=== PATIENT | female | born 1955 | race Two or more races ===

== ENCOUNTER 2025-01-03 18:05 | Emergency (ER) | payer OTHER ==
[~2025-01-03] VITALS: Ht 157.5 cm; Wt 48.3 kg
--- NOTE | 2025-01-03 18:56 | ED.PDOC ---
History of Present Illness HPI Comments 69 y/o F with a history of hypertension, dyslipidemia, benign tremor, osteoporosis and Hodgkin's lymphoma in remission referred by urgent care for evaluation of jaundice for the last 3 weeks. Patient notes yellowing of her skin and eyes, however denies any abdominal pain, nausea, vomiting, fever, diarrhea or other symptoms. Patient was seen at urgent care where ultrasound of the abdomen was performed showing biliary dilatation, gallstones and sludge. 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 Family History Family History: Unknown Social History Smoker: Cigarettes Alcohol: Heavy Drugs: Denies Drug Use Lives In: Home All Other Systems: Reviewed and Negative (Comprehensive systems review obtained and negative except for what is stated in the HPI.) Physical Exam General Appearance: No Apparent Distress HEENT: Scleral Icterus (L), Other (Moist mucous membranes) Neck: Full Range of Motion, Normal Inspection Respiratory: Lungs Clear, No Accessory Muscle Use, No Respiratory Distress, Normal Breath Sounds Cardiovascular: No Edema, No JVD, Regular Rate/Rhythm Breast Exam: Deferred Gastrointestinal: Non Tender, Soft Genitalia: Deferred Pelvic: Deferred Rectal: Deferred Extremities: Normal inspection, Normal range of motion, Non-tender, No pedal edema Neurologic: Alert (Oriented x4), Normal Affect, Normal Mood, Other (Ambulatory) Cerebellar Function: NOT DONE Reflexes: NOT DONE Skin: Dry, Jaundice, Warm Lymphatic: NOT DONE Was a procedure done? Was a procedure done?: No Differential Dx Considerations may include: biliary obstruction, cholelithiasis/choledocholithiasis, liver failure, hepatitis, cholangitis, among others X-Ray, Labs, Meds, VS Vital Signs Date Time Temp Pulse Resp B/P (MAP) Pulse Ox O2 Delivery O2 Flow Rate FiO2 01/03/25 20:22 99.1 88 20 159/87 (111) 99 99.1 01/03/25 18:31 98.3 95 19 149/89 (109) 98 98.3 Lab Test 01/03/25 21:18 01/03/25 18:34 Range/Units Urine Color Pending Urine Clarity Pending Urine pH Pending Urine Specific [place] Pending Urine Protein Pending Urine Ketones Pending Urine Blood Pending Urine Nitrite Pending Urine Bilirubin Pending Urine Urobilinogen Pending Urine Leukocyte Esterase Pending Urine RBC 0 - 4 /hpf Urine Microscopic WBC Pending Urine Squamous Epithelial Cells <5 /hpf Urine Bacteria None Seen /hpf Urine Glucose Pending White Blood Count 9.2 4.4-10.8 10^3/uL Red Blood Count 3.29 L 4.0-5.20 10^6/uL Hemoglobin 11.6 L 12.2-16.2 g/dL Hematocrit 33.1 L 36.0-46.0 % Mean Corpuscular Volume 100.6 H 80.0-100.0 fL Mean Corpuscular Hemoglobin 35.2 H 28.0-32.0 pg Mean Corpuscular Hemoglobin Concent 35.0 32.0-36.0 g/dL Red Cell Distribution Width 15.1 H 11.8-14.3 % Platelet Count 320 140-450 10^3/uL Mean Platelet Volume 7.9 6.9-10.8 fL Neutrophils (%) (Auto) 37.0-80.0 % Lymphocytes (%) (Auto) 10.0-50.0 % Monocytes (%) (Auto) 0.0-12.0 % Basophils (%) (Auto) 0.0-2.0 % Neutrophils # (Auto) 1.6-8.6 10 ^3/uL Lymphocytes # (Auto) 0.4-5.4 10 ^3/uL Monocytes # (Auto) 0-1.3 10 ^3/uL Differential Total Cells Counted 100.0 100 Neutrophils % (Manual) 84 H 37.0-80.0 Band Neutrophils % (Manual) 0 Lymphocytes % (Manual) 10 10.0-50.0 Monocytes % (Manual) 5 0-12 Eosinophils % (Manual) 1 0-7 Basophils % (Manual) 0 0.0-2.0 Metamyelocytes % (manual) 0 Myelocytes % (Manual) 0 Promyelocytes % (Manual) 0 Blast Cells % (Manual) 0 Reactive Lymphocytes 0 Platelet Estimate Adequate Anisocytosis (manual) Slight Macrocytosis Slight Target Cells Few Stomatocytes Moderate Sodium Level 134 L 136-145 mmol/L Potassium Level 3.9 3.5-5.1 mmol/L Chloride Level 104 98-107 mmol/L Carbon Dioxide Level 20 20-31 mmol/L Anion Gap 10 5-15 Blood Urea Nitrogen 12 9-23 mg/dL Creatinine 0.67 0.550-1.02 mg/dL Glomerular Filtration Rate Calc 96 >90 mL/min BUN/Creatinine Ratio 17.9 10.0-20.0 Serum Glucose 112 H 74-106 mg/dL Calcium Level 9.8 8.7-10.4 mg/dL Total Bilirubin 22.3 H 0.2-1.0 mg/dL Aspartate Amino Transferase (AST) 120 H 13-40 U/L Alanine Aminotransferase (ALT) 140 H 7-40 U/L Alkaline Phosphatase 1181 H 46-116 U/L Total Protein 7.1 5.7-8.2 g/dL Albumin 4.4 3.2-4.8 g/dL Lipase 153 H 12-53 U/L [place] [address] Ph: [phone] DIAGNOSTIC IMAGING Diagnostic Imaging Report : [id number] Signed PATIENT: PORSCHE DALAL ACCT: [id number] UNIT: [id number] : 1955 LOC: ER ROOM / BED: / AGE / SEX: 69 / F ADM STATUS: REG ER SERVICE 183 ORDERING PHYSICIAN: RANDOLPH ZUNIGA MD PROCEDURE(s): ABDL - ABDOMEN LIMITED REASON: jaundice, eval for biliary obstruction ORDER NUMBER(s): [id number], ACCESSION NUMBER(s): [id number] INDICATION: jaundice, eval for biliary obstruction TECHNIQUE: Multiple real-time sonographic images of the abdomen were obtained. COMPARISON: None FINDINGS: The liver is homogenous in echogenicity. The liver measures 15.7 cm. No intrahepatic biliary ductal dilatation is noted. The gallbladder wall measures 0.26 cm and is unremarkable. There is mobile gallstone with sludge.. The common duct measures 1.72 cm and is a large. No pericholecystic fluid is noted. The right kidney measures 10.1 cm. No hydronephrosis. The pancreas is not well visualized due to obscuration from bowel gas. The visualized portions of the IVC and aorta are grossly unremarkable. IMPRESSION: 1. Cholelithiasis 2. Dilated common bile duct measuring 1.72 I would recommend MRCP choledocholithiasis. ATED BY: NALINI KENNEDY MD DICTATED DATE/TIME: 01/03/251929 SIGNED BY: NALINI KENNEDY MD SIGNED DATE/TIME: 01/03/251929 CC: X-Ray, Labs, Meds, VS Comment 69-year-old female with a history of hypertension, osteoporosis, dyslipidemia, benign tremor, Hodgkin's lymphoma in remission referred by urgent care for evaluation of jaundice Vitals remarkable for BP 149/89 Exam remarkable for jaundice Rhythm strip independently interpreted by me: Sinus rhythm, rate 95, no ectopy. Right upper quadrant ultrasound: IMPRESSION: 1. Cholelithiasis 2. Dilated common bile duct measuring 1.72 I would recommend MRCP choledocholithiasis. CBC unremarkable, CMP remarkable for total bilirubin 22.3, AST 120, ALT 140, alkaline phos 1181, lipase 153, UA unremarkable No acute treatment indicated in the ED. Case discussed with ISAIAS Gonzales who discussed the case with their general surgeon and Dr. Rodriguez, who recommended the patient be transferred to [facility], as we do not have ERCP capability at our facility. Plan is to transfer the patient to [facility] or another higher level of care facility. [facility] fun house attendant was unavailable. Case discussed with Dr. Ames at [facility], who agreed to accept the patient pending verification from there on-call GI specialist that they have ERCP capability. Case discussed with Dr. GI at [facility], who verified they have ERCP. Patient appears stable for transfer. Time of 1ST Reevaluation: 18:50 Reevaluation 1ST: Unchanged Patient Education/Counseling: Diagnosis, Treatment Family Education/Counseling: No Family Present Departure 1 Departure Time of Disposition: 20:54 Impression: Primary Impression: Biliary obstruction Disposition: 02 SHORT TERM HOSPITAL Admit to: Med Surg Condition: Guarded Critical Care Note Critical Care Time?: No Stability Stability form required: No Heart Score Heart Score: Heart Score Response (Comments) Value History N/A 0 EKG N/A 0 Age N/A 0 Risk Factors N/A 0 Troponin N/A 0 Total 0 I personally scribed for RANDOLPH ZUNIGA MD ([email or web address]) on 01/03/25 at 18:56. Electronically submitted by David Polanco ([email or web address]). I personally scribed for RANDOLPH ZUNIGA MD ([email or web address]) on 01/03/25 at 19:42. Electronically submitted by David Polanco ([email or web address]). RANDOLPH ZUNIGA MD January 03, 2025 18:56
[2025-01-03 18:59] LABS: Red Cell Distribution Width 15.1 % (11.8-14.3)
[2025-01-03 19:00] LABS: Hematocrit 33.1 % (36.0-46.0); Hemoglobin 11.6 g/dL (12.2-16.2); Mean Corpuscular Hemoglobin 35.2 pg (28.0-32.0); Mean Corpuscular Volume 100.6 fL (80.0-100.0); Platelet Count (auto) 320 10^3/uL (140-450); Red Blood Cells 3.29 10^6/uL (4.0-5.20); White Blood Cell 9.2 10^3/uL (4.4-10.8)
[2025-01-03 19:03] LABS: Band Neutrophils % (manual) 0; Basophils % (manual) 0 (0.0-2.0); Blast Cells 0; Metamyelocytes % 0; Myelocytes % 0; Promyelocytes % 0; Reactive Lymphocytes 0
[2025-01-03 19:22] LABS: Albumin 4.4 g/dL (3.2-4.8); Anion Gap 10 (5-15); Anisocytosis Slight; Calcium 9.8 mg/dL (8.7-10.4); Carbon Dioxide 20 mmol/L (20-31); Chloride 104 mmol/L (98-107); Eosinophils % (manual) 1 (0-7); Lymphocytes % (manual) 10 (10.0-50.0); Macrocytosis Slight; Monocytes % (manual) 5 (0-12); Platelet Estimate Adequate; Potassium 3.9 mmol/L (3.5-5.1); Stomatocytes Moderate; Target Cell FEW
[2025-01-03 19:24] LABS: Bilirubin, Total 22.3 mg/dL (0.2-1.0); Glucose 112 mg/dL (74-106); Sodium 134 mmol/L (136-145)
--- NOTE | 2025-01-03 19:33 | DVH ---
INDICATION: jaundice, eval for biliary obstruction TECHNIQUE: Multiple real-time sonographic images of the abdomen were obtained. COMPARISON: None FINDINGS: The liver is homogenous in echogenicity. The liver measures 15.7 cm. No intrahepatic bilia ry ductal dilatation is noted. The gallbladder wall measures 0.26 cm and is unremarkable. There is mobile gallstone with sludge.. T he common duct measures 1.72 cm and is a large. No pericholecystic fluid is noted. The right kidney measures 10.1 cm. No hydronephrosis. The pancreas is not well visualized due to obscuration from bowel gas. The visualized portions of the IVC and aorta are grossly unremarkable. IMPRESSION: 1. Cholelithiasis 2. Dilated common bile duct measuring 1.72 I would recommend MRCP choledocholithiasis.
[2025-01-03 19:35] LABS: Alkaline Phosphatase 1181 U/L (46-116)
[2025-01-03 19:46] LABS: BUN/Creatinine Ratio 17.9 (10.0-20.0); Blood Urea Nitrogen 12 mg/dL (9-23)
[2025-01-03 19:47] LABS: Alanine Aminotransferase 140 U/L (7-40); Aspartate Aminotransferase 120 U/L (13-40); Lipase 153 U/L (12-53); Total Protein 7.1 g/dL (5.7-8.2)
--- NOTE | 2025-01-03 22:09 | DVHINCON2 ---
BENJI DRAPER [facility] 01/03/25 2209: Date of service: January 03, [address] Stewart Reason for Consultation Medical Management History of Present Illness This is a 69 year old female with a history of hypertension, dyslipidemia, benign tremor, osteoporosis and Hodgkin's lymphoma in remission referred by urgent care for evaluation of jaundice for the last 3 weeks. Patient notes yellowing of her skin and eyes, however denies any abdominal pain, nausea, vomiting, fever, diarrhea or other symptoms. Patient was seen at urgent care where ultrasound of the abdomen was performed showing biliary dilatation, gallstones and sludge. 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 Past Surgical History Smoker: Cigarettes Alcohol: Heavy Drugs: Denies Drug Use Lives In: Home Family History Family History: Unknown Social History Smoker: Cigarettes Alcohol: Heavy Drugs: Denies Drug Use Lives In: Home Allergies: Coded Allergies: Codeine (Verified Allergy, Unknown, 01/03/25) Sulfacetamide (Verified Allergy, Unknown, 01/03/25) Review of Systems All Other Systems: Reviewed and Negative, Jaundice worsening, (Comprehensive systems review obtained and negative except for what is stated in the HPI.) Vital Signs Vital Signs Date Time Temp Pulse Resp B/P (MAP) Pulse Ox O2 Delivery O2 Flow Rate FiO2 01/03/25 20:22 99.1 88 20 159/87 (111) 99 99.1 Physical Exam General Appearance: No Apparent Distress HEENT: Scleral Icterus (L), Other (Moist mucous membranes) Neck: Full Range of Motion, Normal Inspection Respiratory: Lungs Clear, No Accessory Muscle Use, No Respiratory Distress, Normal Breath Sounds Cardiovascular: No Edema, No JVD, Regular Rate/Rhythm Breast Exam: Deferred Gastrointestinal: Non Tender, Soft Genitalia: Deferred Pelvic: Deferred Rectal: Deferred Extremities: Normal inspection, Normal range of motion, Non-tender, No pedal edema Neurologic: Alert (Oriented x4), Normal Affect, Normal Mood, Other (Ambulatory) Cerebellar Function: NOT DONE Reflexes: NOT DONE Skin: Dry, Jaundice, Warm Lymphatic: NOT DONE Labs/Diagnostic Data Labs Test 01/03/25 21:18 01/03/25 18:34 Range/Units Urine RBC 0 - 4 /hpf Urine Squamous Epithelial Cells <5 /hpf Urine Bacteria None Seen /hpf White Blood Count 9.2 4.4-10.8 10^3/uL Red Blood Count 3.29 L 4.0-5.20 10^6/uL Hemoglobin 11.6 L 12.2-16.2 g/dL Hematocrit 33.1 L 36.0-46.0 % Mean Corpuscular Volume 100.6 H 80.0-100.0 fL Mean Corpuscular Hemoglobin 35.2 H 28.0-32.0 pg Mean Corpuscular Hemoglobin Concent 35.0 32.0-36.0 g/dL Red Cell Distribution Width 15.1 H 11.8-14.3 % Platelet Count 320 140-450 10^3/uL Mean Platelet Volume 7.9 6.9-10.8 fL Neutrophils (%) (Auto) 37.0-80.0 % Lymphocytes (%) (Auto) 10.0-50.0 % Monocytes (%) (Auto) 0.0-12.0 % Basophils (%) (Auto) 0.0-2.0 % Neutrophils # (Auto) 1.6-8.6 10 ^3/uL Lymphocytes # (Auto) 0.4-5.4 10 ^3/uL Monocytes # (Auto) 0-1.3 10 ^3/uL Differential Total Cells Counted 100.0 100 Neutrophils % (Manual) 84 H 37.0-80.0 Band Neutrophils % (Manual) 0 Lymphocytes % (Manual) 10 10.0-50.0 Monocytes % (Manual) 5 0-12 Eosinophils % (Manual) 1 0-7 Basophils % (Manual) 0 0.0-2.0 Metamyelocytes % (manual) 0 Myelocytes % (Manual) 0 Promyelocytes % (Manual) 0 Blast Cells % (Manual) 0 Reactive Lymphocytes 0 Platelet Estimate Adequate Anisocytosis (manual) Slight Macrocytosis Slight Target Cells Few Stomatocytes Moderate Sodium Level 134 L 136-145 mmol/L Potassium Level 3.9 3.5-5.1 mmol/L Chloride Level 104 98-107 mmol/L Carbon Dioxide Level 20 20-31 mmol/L Anion Gap 10 5-15 Blood Urea Nitrogen 12 9-23 mg/dL Creatinine 0.67 0.550-1.02 mg/dL Glomerular Filtration Rate Calc 96 >90 mL/min BUN/Creatinine Ratio 17.9 10.0-20.0 Serum Glucose 112 H 74-106 mg/dL Calcium Level 9.8 8.7-10.4 mg/dL Total Bilirubin 22.3 H 0.2-1.0 mg/dL Direct Bilirubin 15.5 H <0.3 mg/dL Aspartate Amino Transferase (AST) 120 H 13-40 U/L Alanine Aminotransferase (ALT) 140 H 7-40 U/L Alkaline Phosphatase 1181 H 46-116 U/L Total Protein 7.1 5.7-8.2 g/dL Albumin 4.4 3.2-4.8 g/dL Lipase 153 H 12-53 U/L Assessment This is a 69 year old female with a history of hypertension, dyslipidemia, benign tremor, osteoporosis and Hodgkin's lymphoma in remission referred by urgent care for evaluation of jaundice for the last 3 weeks. Patient notes yellowing of her skin and eyes, however denies any abdominal pain, nausea, vomiting, fever, diarrhea or other symptoms. Patient was seen at urgent care where ultrasound of the abdomen was performed showing biliary dilatation, gallstones and sludge. ABD US : 1. Cholelithiasis 2. Dilated common bile duct measuring 1.72 I would recommend MRCP choledocholithiasis. Patient needs HLOC for ERCP which cannot be done at this facility. Problems(with codes): (1) Biliary obstruction Plan/Recommendation Recommendation for HLOC for ERCP. Patient will be transferred to [facility]. Plan discussed with: Patient, Other LYNN BOLANOS MD 01/06/25 1243: Allergies: Coded Allergies: Codeine (Verified Allergy, Unknown, 01/03/25) Sulfacetamide (Verified Allergy, Unknown, 01/03/25) Plan/Recommendation Patient's chart is reviewed and discussed with the nurse practitioner. Given that there is no ERCP at this hospital we will transfer her to [facility] for further GI evaluation as appropriate. I agree with the nurse practitioner's evaluation, documentation, assessment and care plan as outlined. BENJI DRAPER January 03, 2025 22:09 LYNN BOLANOS MD January 06, 2025 12:43
[2025-01-04 00:34] VITALS: BP 170/79; PULSE 82; RESP 20; TEMP 97.4; O2SAT 99
== END 2025-01-04 00:55 | disposition short-term general hospital (02) ==
LOC: ER 18:15
DX: K83.1 Obstruction of bile duct (principal); C81.9A Hodgkin lymphoma, unspecified, in remission; E78.5 Hyperlipidemia, unspecified; I10 Essential (primary) hypertension; F17.210 Nicotine dependence, cigarettes, uncomplicated; M81.0 Age-related osteoporosis without current pathological fracture; Z88.2 Allergy status to sulfonamides; Z88.5 Allergy status to narcotic agent
CPT/HCPCS: 36415; 76705; 80053; 82248; 83690; 85007; 85027